=== PATIENT | male | born 1985 | race Two or more races ===

== ENCOUNTER 2024-12-13 18:42 | Emergency (ER) | payer OTHER ==
[~2024-12-13] VITALS: Ht 167.6 cm; Wt 84.1 kg
[2024-12-13 19:39] VITALS: TEMP 98.2
[2024-12-13 22:30] VITALS: BP 131/97; PULSE 66; RESP 14; O2SAT 97
== END 2024-12-13 22:57 ==
LOC: EMS 18:42
DX: K42.9 Umbilical hernia without obstruction or gangrene (principal); Z02.89 Encounter for other administrative examinations
CPT/HCPCS: 73700; 74176; 99284; Z7502